=== PATIENT | male | born 1980 | race Caucasian/White ===

== ENCOUNTER 2022-07-01 18:45 | Emergency (ER) | payer BC ==
[2022-07-01 20:11] LABS: Bilirubin Negative (Negative); Blood, Urine Negative (Negative); Clarity Clear (Clear); Glucose, Urine (Dipstick) Negative (Negative); Ketone, Urine Negative (Negative); Leukocyte Negative (Negative); Nitrite Negative (Negative); Protein, Urine (Dipstick) Negative (Neg-Trace); Urobilinogen 0.2 mg/dL (Less than 2); pH, Urine 6.5 (5.0-9.0)
[2022-07-01 20:15] LABS: #Basophils 0.1 thou/uL (0.0-0.2); #Lymphocytes 1.5 thou/uL (1.20-3.40); #Monocytes 0.6 thou/uL (0.11-0.59); #Neutrophils 10.1 thou/uL (1.40-6.50); %Basophils 0.6 % (0.0-1.0); %Eosinophils 0.3 % (0.0-10.0); %Lymphocytes 12.2 % (21.0-51.0); %Monocytes 4.9 % (0.0-10.0); ALT (SGPT) 39 U/L (8-55); AST (SGOT) 29 U/L (5-34); Albumin 4.7 g/dL (3.5-5.0); Alkaline Phosphatase 41 U/L (40-110); Anion Gap 16 mmol/L (10-20); BUN (Urea Nitrogen) 13 mg/dL (8.9-20.6); Bilirubin, Total 0.7 mg/dL (0.2-1.2); Calc. Creatinine Clearance 0 mL/min (70-130); Calcium 9.2 mg/dL (7.8-10.44); Carbon Dioxide 22 mmol/L (22-29); Chloride 104 mmol/L (98-107); Estimated GFR 112; Globulin 2.6 g/dL (2.4-3.5); Glucose 108 mg/dL (70-105); Hemoglobin 17.2 g/dL (14.0-18.0); Mean Corpuscular Volume 83.6 fL (78.0-98.0); Mean Platelet Volume 7.3 fL (7.4-10.4); Platelet Count 196 thou/uL (130-400); Platelet Morphology Comment Appears Adequate; Potassium 4.1 mmol/L (3.5-5.1); Protein, Total 7.3 g/dL (6.0-8.3); RBC Distribution Width 11.9 % (11.5-14.5); RBC Morphology Normal; Red Blood Cell (RBC) Count 5.55 mill/uL (4.70-6.10); Sodium 138 mmol/L (136-145); White Blood Cell (WBC) Count 12.3 thou/uL (4.8-10.8)
== END 2022-07-01 21:05 | disposition home or self-care (01) ==
LOC: BURERS 18:45
DX: R42 Dizziness and giddiness (principal); R55 Syncope and collapse; F17.220 Nicotine dependence, chewing tobacco, uncomplicated
CPT/HCPCS: 70450; 71046; 80053; 81003; 84443; 84484; 85025; 93005